=== PATIENT | female | born 1945 | race Caucasian/White ===

== ENCOUNTER 2017-08-17 18:57 | Inpatient (IN) | payer OTHER ==
[2017-08-17 21:48] LABS: ADD MAN DIFF? NO
[2017-08-17] MEDS: SOD CHLORIDE 0.9% 500 ML IV (21:49)
[2017-08-17 21:52] LABS: WHITE BLOOD COUNT 10.1 10^3/ul (4.8-10.8)
[2017-08-17 21:52] LABS: BASOPHILS % 0.4 % (0.0-2.0); HEMATOCRIT 33.9 % (37.0-47.0); HEMOGLOBIN 11.4 g/dl (12.0-16.0); LYMPHOCYTES # 0.7 10^3/ul (0.8-2.9); LYMPHOCYTES % 7.3 % (15.0-51.0); MEAN CORPUSCULAR HEMOGLOBIN 28.6 pg (29.0-33.0); MEAN CORPUSCULAR HGB CONC 33.6 g/dl (32.0-37.0); MEAN CORPUSCULAR VOLUME 85.2 fl (82.0-101.0); MEAN PLATELET VOLUME 12.1 fl (7.4-10.4); MONOCYTE # 0.9 10^3/ul (0.3-0.9); MONOCYTES % 8.5 % (0.0-11.0); NEUTROPHIL # 8.4 10^3/ul (1.6-7.5); NEUTROPHILS % 83.3 % (39.0-77.0); PLATELET COUNT 238 10^3/UL (140-415); RED BLOOD COUNT 3.98 10^6/ul (4.20-5.40); RED CELL DISTRIBUTION WIDTH 12.4 % (11.5-14.5)
[2017-08-17] MEDS: SOD CHLORIDE 0.9% 1,000 ML IV (21:53)
[2017-08-17] MEDS: KETOROLAC 30 MG INJ IV (21:54)
[2017-08-17 22:17] LABS: ANION GAP 15 (8-16); BLOOD UREA NITROGEN 26 mg/dl (7-20); CALCIUM 9.6 mg/dl (8.4-10.2); CARBON DIOXIDE 23 mmol/L (21-31); CHLORIDE 107 mmol/L (97-110); CREATININE 1.69 mg/dl (0.44-1.00); GLUCOSE 232 mg/dl (70-220); POTASSIUM 4.6 mmol/L (3.5-5.1); SODIUM 140 mmol/L (135-144)
[2017-08-17 22:27] LABS: TROPONIN-I 0.039 ng/ml (0.00-0.12)
[2017-08-17] MEDS: morphine 4 MG/ML VIAL IV (22:48)
[2017-08-17] MEDS: ONDANSETRON 4 MG INJ IV (22:48)
[2017-08-17] MEDS: NITROGLYCERIN (SL) 0.4 MG TAB SL (23:25)
[2017-08-17] MEDS: IODIXANOL LOCM 100 ML BTL (23:25)
[2017-08-17] MEDS: SOD CHLORIDE 0.9% 100 ML (23:25)
[2017-08-18] MEDS: CEFTRIAXONE 1 GM/50 ML (PMX) 50 ML IVPB (00:20)
[2017-08-18] MEDS: METOCLOPRAMIDE 10 MG INJ IV (00:39)
[2017-08-18] MEDS: AZITHROMYCIN 500MG/NS (PMX) 250 ML IV (00:40)
[2017-08-18] MEDS ORDERED: ONDANSETRON 4 MG INJ IV (01:00)
[2017-08-18] MEDS ORDERED: BISACODYL (EC) 5 MG TAB PO (01:30)
[2017-08-18] MEDS ORDERED: HYDROCODONE/APAP (5/325) TAB PO (01:30)
[2017-08-18] MEDS ORDERED: DOCUSATE SODIUM 100 MG CAP PO (01:30)
[2017-08-18] MEDS ORDERED: NACL 0.9% 3 ML SYG IV (01:30)
[2017-08-18] MEDS ORDERED: INSULIN GLARGINE [LANtus] 3 ML PEN SC (01:30)
[2017-08-18] MEDS ORDERED: GLUCOSE GEL 15 GRAM TUBE PO (02:00)
[2017-08-18] MEDS ORDERED: GLUCAGON 1 MG INJ IM (02:00)
[2017-08-18] MEDS ORDERED: DEXTROSE 50% 50 ML SYRINGE IV ×2 (02:00)
[2017-08-18 02:45] LABS: CREATINE KINASE 112 IU/L (23-200)
[2017-08-18 02:48] LABS: LACTIC ACID 0.8 mmol/L (0.5-2.0)
[2017-08-18 02:58] LABS: CK-MB 1.12 ng/ml (0.0-2.4); TROPONIN-I 0.056 ng/ml (0.00-0.12)
[2017-08-18] MEDS: IPRATROPIUM (NEB) 0.5 MG/2.5 ML AMP NEB ×5 (04:11→20:10)
[2017-08-18] MEDS: ALBUTEROL 0.083% (NEB) 2.5 MG/3 ML AMP NEB ×5 (04:11→20:09)
[2017-08-18 04:37] LABS: B-TYPE NATRIURETIC PEPTIDE 2210 PG/ML (0-125)
[2017-08-18 07:01] LABS: LACTIC ACID 1.3 mmol/L (0.5-2.0)
[2017-08-18 07:02] LABS: CREATINE KINASE 149 IU/L (23-200)
[2017-08-18 07:14] LABS: CK INDEX 2.9
[2017-08-18 07:18] LABS: TROPONIN-I 0.397 ng/ml (0.00-0.12)
[2017-08-18 07:57] LABS: ADD UMIC YES; UR ASCORBIC ACID NEGATIVE (NEGATIVE); UR BACTERIA FEW /HPF (NONE SEEN); UR BILIRUBIN (Dip) NEGATIVE (NEGATIVE); UR BLOOD (Dip) 1+ mg/dL (NEGATIVE); UR CLARITY CLEAR (CLEAR); UR COLOR YELLOW (YELLOW); UR GLUCOSE (Dip) 2+ mg/dL (NEGATIVE); UR KETONES (Dip) TRACE mg/dL (NEGATIVE); UR LEUKOCYTE ESTERASE (Dip) NEGATIVE Leu/ul (NEGATIVE); UR NITRITE (Dip) NEGATIVE (NEGATIVE); UR RBC 5 /HPF (0-5); UR SPECIFIC GRAVITY (Dip) 1.041 (1.003-1.030); UR TOTAL PROTEIN (Dip) 3+ mg/dl (NEGATIVE); UR UROBILINOGEN (Dip) NEGATIVE (NEGATIVE); UR WBC 1 /HPF (0-5)
[2017-08-18 08:07] LABS: LACTIC ACID 1.6 mmol/L (0.5-2.0)
[2017-08-18] MEDS: ASPIRIN (EC) 81 MG TAB PO (09:26)
[2017-08-18] MEDS: BENAZEPRIL 20 MG TAB PO ×2 (09:26→20:30)
[2017-08-18] MEDS: FAMOTIDINE 20 MG TAB PO (09:26)
[2017-08-18] MEDS: CLOPIDOGREL 75 MG TAB PO (09:26)
[2017-08-18] MEDS: OSELTAMIVIR 75 MG CAP PO (10:57)
[2017-08-18] MEDS: ACETAMINOPHEN 325 MG TAB PO (13:20)
[2017-08-18] MEDS ORDERED: METOPROLOL 5 MG INJ IV (14:00)
[2017-08-18] MEDS ORDERED: BUMETANIDE 1 MG INJ IV (18:00)
[2017-08-18] MEDS: ATORVASTATIN 40 MG TAB PO (20:30)
[2017-08-18] MEDS: INSULIN ASPART [NOVOLOG] 3 ML PEN SC (20:36)
[2017-08-18] MEDS: INSULIN GLARGINE [LANtus] 3 ML PEN SC (20:37)
[2017-08-18] MEDS: SOD CHLORIDE 0.9% 1,000 ML IV (21:00)
[2017-08-18] MEDS: ACETYLCYSTEINE 600 MG CAP PO (22:47)
[2017-08-18] MEDS: OSELTAMIVIR 30 MG CAP PO (23:17)
[2017-08-18 23:33] LABS: Allen Test ACCEPTAB; Arterial Base Excess -1.7 mmol/L (-3.0-3); Arterial Blood Gas Oxygen Sat 97.1 mmHG (95.0-100.0); Arterial COHb 0.3 % (0.0-3.0); Arterial Fraction of Oxyhgb 96.6 % (93.0-99.0); Arterial HCO3 22.3 mmol/L (22.0-26.0); Arterial MetHb 0.2 % (0.0-1.5); Arterial Total Hemglobin 12.4 g/dl (12.0-18.0); Arterial pCO2 35.6 mmhg (35-45); Blood Gas IEPAP 18/5; Blood Gas PS 13; MODE MASK - BIPAP; Site Right Radial
[2017-08-18] MEDS: NITROGLYCERIN 0.3 MG/HR PATCH TRANSDERM (23:40)
[2017-08-18] MEDS: ENOXAPARIN 100 MG/ML SYG SC (23:43)
[2017-08-19] MEDS: LEVALBUTEROL (NEB) 0.63 MG/3 ML AMP HHN ×6 (00:35→20:59)
[2017-08-19] MEDS: IPRATROPIUM (NEB) 0.5 MG/2.5 ML AMP NEB ×6 (00:35→20:59)
[2017-08-19] MEDS: METOCLOPRAMIDE 10 MG INJ IV ×4 (01:19→17:53)
[2017-08-19] MEDS: METOPROLOL 5 MG INJ IV ×4 (01:20→17:53)
[2017-08-19] MEDS: INSULIN ASPART [NOVOLOG] 3 ML PEN SC ×6 (01:23→21:53)
[2017-08-19] MEDS: ACCU-CHEK XX (02:00)
[2017-08-19] MEDS: LIDOCAINE 2% VISC 15 ML CUP PO (03:49)
[2017-08-19] MEDS: AZITHROMYCIN 500MG/NS (PMX) 250 ML IV (03:50)
[2017-08-19] MEDS: CEFTRIAXONE 1 GM/50 ML (PMX) 50 ML IVPB (03:50)
[2017-08-19 07:42] LABS: WHITE BLOOD COUNT 8.1 10^3/ul (4.8-10.8)
[2017-08-19 07:42] LABS: HEMATOCRIT 32.4 % (37.0-47.0); HEMOGLOBIN 10.6 g/dl (12.0-16.0); MEAN CORPUSCULAR HEMOGLOBIN 28.6 pg (29.0-33.0); MEAN CORPUSCULAR HGB CONC 32.7 g/dl (32.0-37.0); MEAN CORPUSCULAR VOLUME 87.6 fl (82.0-101.0); MEAN PLATELET VOLUME 12.1 fl (7.4-10.4); PLATELET COUNT 199 10^3/UL (140-415); RED CELL DISTRIBUTION WIDTH 12.8 % (11.5-14.5)
[2017-08-19 07:53] LABS: ADD MAN DIFF? YES; POSITIVE DIFF @See below
[2017-08-19 08:02] LABS: CREATINE KINASE 272 IU/L (23-200)
[2017-08-19 08:05] LABS: ALANINE AMINOTRANSFERASE 34 IU/L (13-69); ALBUMIN/GLOBULIN RATIO 1.07; ALKALINE PHOSPHATASE 89 IU/L (42-121); ANION GAP 15 (8-16); ASPARTATE AMINO TRANSFERASE 31 IU/L (15-46); BLOOD UREA NITROGEN 29 mg/dl (7-20); CALCIUM 8.1 mg/dl (8.4-10.2); CARBON DIOXIDE 22 mmol/L (21-31); CHLORIDE 109 mmol/L (97-110); CREATININE 1.77 mg/dl (0.44-1.00); GLUCOSE 156 mg/dl (70-220); MAGNESIUM 2.2 mg/dl (1.7-2.5); POTASSIUM 4.5 mmol/L (3.5-5.1); SODIUM 141 mmol/L (135-144); TOTAL PROTEIN 5.8 g/dl (6.1-8.1)
[2017-08-19 08:11] LABS: CHOLESTEROL 182 mg/dl (100-200)
[2017-08-19 08:11] LABS: CHOL/HDL RATIO 4.3 RATIO; HDL CHOLESTEROL 42 mg/dl (33-92); LDL CHOLESTEROL,CALCULATED 119 mg/dl; TRIGLYCERIDES 107 mg/dl (0-149)
[2017-08-19 08:14] LABS: B-TYPE NATRIURETIC PEPTIDE 12100 PG/ML (0-125)
[2017-08-19 08:15] LABS: CK-MB 2.74 ng/ml (0.0-2.4)
[2017-08-19 08:58] LABS: FREE THYROXINE INDEX (Calc) 2.18 ug/ml (0.65-3.89); T3 UPTAKE 40.4 % (23.5-40.5); T4 (THYROXINE) 5.4 ug/dl (5.5-11.0)
[2017-08-19 08:58] LABS: FREE T4 (FREE THYROXINE) 0.95 ng/dl (0.78-2.44)
[2017-08-19] MEDS: CLOPIDOGREL 75 MG TAB PO (08:58)
[2017-08-19] MEDS: OSELTAMIVIR 30 MG CAP PO (08:58)
[2017-08-19] MEDS: FAMOTIDINE 20 MG TAB PO (08:58)
[2017-08-19] MEDS: ACETYLCYSTEINE 600 MG CAP PO ×2 (08:58→21:00)
[2017-08-19] MEDS: ASPIRIN (EC) 81 MG TAB PO (08:58)
[2017-08-19] MEDS: NITROGLYCERIN 0.3 MG/HR PATCH TRANSDERM (09:08)
[2017-08-19] MEDS: SOD CHLORIDE 0.9% 1,000 ML IV (09:08)
[2017-08-19] MEDS: INSULIN GLARGINE [LANtus] 3 ML PEN SC ×2 (09:15→21:53)
[2017-08-19 10:27] LABS: ANISOCYTOSIS 2+ (0-0); BAND NEUTROPHILS #M 0.6 10^3/ul (0.0-0.6); BAND NEUTROPHILS % (M) 8 % (0-4); LYMPHOCYTES #M 0.7 10^3/ul (0.8-2.9); LYMPHOCYTES % (M) 9 % (15-51); MICROCYTOSIS 2+ (0-0); MONOCYTE #M 0.4 10^3/ul (0.3-0.9); MONOCYTES % (M) 5 % (0-11); PLATELET ESTIMATE NORMAL; POLYCHROMASIA 2+ (0-0); SEG NEUT #M 6.4 10^3/ul (1.6-7.5); SEGMENTED NEUTROPHILS (M) % 78 % (39-77); SMUDGE%M 11 % (0-0)
[2017-08-19] MEDS: LINEZOLID 600 MG/D5W (PMX) 300 ML IVPB (13:30)
[2017-08-19] MEDS: CEFEPIME 1GM/50 ML (PMX) 50 ML IVPB (14:30)
[2017-08-19] MEDS: ATORVASTATIN 40 MG TAB PO (21:00)
[2017-08-19] MEDS: ENOXAPARIN 100 MG/ML SYG SC (21:53)
[2017-08-20] MEDS ORDERED: METOCLOPRAMIDE 10 MG INJ IV
[2017-08-20] MEDS: IPRATROPIUM (NEB) 0.5 MG/2.5 ML AMP NEB ×6 (00:46→20:45)
[2017-08-20] MEDS: LEVALBUTEROL (NEB) 0.63 MG/3 ML AMP HHN ×6 (00:46→20:45)
[2017-08-20] MEDS: LINEZOLID 600 MG/D5W (PMX) 300 ML IVPB ×3 (01:05→21:05)
[2017-08-20] MEDS: METOPROLOL 5 MG INJ IV ×4 (01:05→17:37)
[2017-08-20] MEDS: INSULIN ASPART [NOVOLOG] 3 ML PEN SC ×6 (01:16→21:00)
[2017-08-20] MEDS: AZITHROMYCIN 500MG/NS (PMX) 250 ML IV ×2 (01:30→05:29)
[2017-08-20] MEDS: SOD CHLORIDE 0.9% 1,000 ML IV ×2 (01:36→15:54)
[2017-08-20] MEDS: ACCU-CHEK XX (02:00)
[2017-08-20] MEDS: ACETYLCYSTEINE 600 MG CAP PO ×2 (08:47→21:03)
[2017-08-20] MEDS: CLOPIDOGREL 75 MG TAB PO (08:48)
[2017-08-20] MEDS: OSELTAMIVIR 30 MG CAP PO (08:48)
[2017-08-20] MEDS: ASPIRIN (EC) 81 MG TAB PO (08:48)
[2017-08-20] MEDS: FAMOTIDINE 20 MG TAB PO (08:48)
[2017-08-20] MEDS: INSULIN GLARGINE [LANtus] 3 ML PEN SC ×2 (08:49→21:19)
[2017-08-20] MEDS: NITROGLYCERIN 0.3 MG/HR PATCH TRANSDERM (08:59)
[2017-08-20 09:10] LABS: ADD MAN DIFF? NO
[2017-08-20 09:35] LABS: PHOSPHORUS 4.2 mg/dl (2.5-4.9)
[2017-08-20 09:35] LABS: MAGNESIUM 2.1 mg/dl (1.7-2.5)
[2017-08-20 09:46] LABS: ALANINE AMINOTRANSFERASE 32 IU/L (13-69); ALBUMIN 3.2 g/dl (3.3-4.9); ALKALINE PHOSPHATASE 89 IU/L (42-121); ANION GAP 14 (8-16); ASPARTATE AMINO TRANSFERASE 39 IU/L (15-46); BILIRUBIN,INDIRECT 0.1 mg/dl (0-1.1); BILIRUBIN,TOTAL 0.1 mg/dl (0.2-1.3); BLOOD UREA NITROGEN 26 mg/dl (7-20); CALCIUM 8.5 mg/dl (8.4-10.2); CARBON DIOXIDE 23 mmol/L (21-31); CHLORIDE 107 mmol/L (97-110); CREATININE 1.67 mg/dl (0.44-1.00); GLUCOSE 141 mg/dl (70-220); POTASSIUM 4.2 mmol/L (3.5-5.1); SODIUM 140 mmol/L (135-144); TOTAL PROTEIN 6.4 g/dl (6.1-8.1)
[2017-08-20 10:07] LABS: BASOPHILS % 0.3 % (0.0-2.0); HEMATOCRIT 32.2 % (37.0-47.0); HEMOGLOBIN 10.5 g/dl (12.0-16.0); LYMPHOCYTES # 1.2 10^3/ul (0.8-2.9); LYMPHOCYTES % 13.7 % (15.0-51.0); MEAN CORPUSCULAR HEMOGLOBIN 28.7 pg (29.0-33.0); MEAN CORPUSCULAR HGB CONC 32.6 g/dl (32.0-37.0); MEAN PLATELET VOLUME 12.2 fl (7.4-10.4); MONOCYTE # 0.8 10^3/ul (0.3-0.9); MONOCYTES % 8.3 % (0.0-11.0); NEUTROPHILS % 77.4 % (39.0-77.0); PLATELET COUNT 210 10^3/UL (140-415); RED BLOOD COUNT 3.66 10^6/ul (4.20-5.40); RED CELL DISTRIBUTION WIDTH 12.4 % (11.5-14.5)
[2017-08-20 10:55] LABS: HEMOGLOBIN A1C 8.3 % (0-5.9)
[2017-08-20] MEDS: CEFEPIME 1GM/50 ML (PMX) 50 ML IVPB (12:47)
[2017-08-20] MEDS ORDERED: hydrALAzine 20 MG INJ IV (18:00)
[2017-08-20] MEDS: hydrALAzine 20 MG INJ IV ×2 (18:56→22:12)
[2017-08-20] MEDS: ATORVASTATIN 40 MG TAB PO (21:02)
[2017-08-20] MEDS: ENOXAPARIN 100 MG/ML SYG SC (21:20)
[2017-08-20] MEDS: DEXTROSE 5%-0.45% NACL 1,000 ML IV (23:28)
[2017-08-21] MEDS: METOPROLOL 5 MG INJ IV ×4 (00:06→17:30)
[2017-08-21] MEDS: AZITHROMYCIN 500MG/NS (PMX) 250 ML IV (00:43)
[2017-08-21] MEDS: INSULIN ASPART [NOVOLOG] 3 ML PEN SC ×6 (00:44→20:45)
[2017-08-21] MEDS: IPRATROPIUM (NEB) 0.5 MG/2.5 ML AMP NEB ×6 (01:11→20:28)
[2017-08-21] MEDS: LEVALBUTEROL (NEB) 0.63 MG/3 ML AMP HHN ×6 (01:11→20:28)
[2017-08-21] MEDS: ACCU-CHEK XX (01:51)
[2017-08-21] MEDS: LORAZEPAM 2 MG INJ IV (04:43)
[2017-08-21 05:59] LABS: ADD MAN DIFF? NO
[2017-08-21 06:06] LABS: WHITE BLOOD COUNT 7.5 10^3/ul (4.8-10.8)
[2017-08-21 06:06] LABS: BASOPHILS % 0.1 % (0.0-2.0); HEMATOCRIT 29.4 % (37.0-47.0); HEMOGLOBIN 9.6 g/dl (12.0-16.0); LYMPHOCYTES # 1.2 10^3/ul (0.8-2.9); LYMPHOCYTES % 16.2 % (15.0-51.0); MEAN CORPUSCULAR HEMOGLOBIN 28.5 pg (29.0-33.0); MEAN CORPUSCULAR HGB CONC 32.7 g/dl (32.0-37.0); MEAN CORPUSCULAR VOLUME 87.2 fl (82.0-101.0); MEAN PLATELET VOLUME 12.6 fl (7.4-10.4); MONOCYTE # 0.7 10^3/ul (0.3-0.9); MONOCYTES % 9.5 % (0.0-11.0); NEUTROPHIL # 5.5 10^3/ul (1.6-7.5); NEUTROPHILS % 73.8 % (39.0-77.0); PLATELET COUNT 182 10^3/UL (140-415); RED BLOOD COUNT 3.37 10^6/ul (4.20-5.40); RED CELL DISTRIBUTION WIDTH 12.4 % (11.5-14.5)
[2017-08-21 06:20] LABS: CREATINE KINASE 299 IU/L (23-200)
[2017-08-21 06:22] LABS: MAGNESIUM 2.2 mg/dl (1.7-2.5)
[2017-08-21 06:22] LABS: PHOSPHORUS 4.4 mg/dl (2.5-4.9)
[2017-08-21 06:29] LABS: ALANINE AMINOTRANSFERASE 35 IU/L (13-69); ALBUMIN 2.6 g/dl (3.3-4.9); ALBUMIN/GLOBULIN RATIO 0.96; ALKALINE PHOSPHATASE 92 IU/L (42-121); ASPARTATE AMINO TRANSFERASE 33 IU/L (15-46); BILIRUBIN,INDIRECT 0.1 mg/dl (0-1.1); BILIRUBIN,TOTAL 0.1 mg/dl (0.2-1.3); BLOOD UREA NITROGEN 26 mg/dl (7-20); CALCIUM 8.1 mg/dl (8.4-10.2); CARBON DIOXIDE 21 mmol/L (21-31); CHLORIDE 110 mmol/L (97-110); CREATININE 1.69 mg/dl (0.44-1.00); GLUCOSE 133 mg/dl (70-220); SODIUM 140 mmol/L (135-144); TOTAL PROTEIN 5.3 g/dl (6.1-8.1)
[2017-08-21 06:31] LABS: CK INDEX 0.3
[2017-08-21 07:37] LABS: ANION GAP 13 (8-16)
[2017-08-21] MEDS: LINEZOLID 600 MG/D5W (PMX) 300 ML IVPB ×2 (08:53→20:52)
[2017-08-21] MEDS: ACETYLCYSTEINE 600 MG CAP PO ×2 (08:54→20:35)
[2017-08-21] MEDS: FAMOTIDINE 20 MG TAB PO (08:54)
[2017-08-21] MEDS: OSELTAMIVIR 30 MG CAP PO (08:55)
[2017-08-21] MEDS: CLOPIDOGREL 75 MG TAB PO (08:55)
[2017-08-21] MEDS: ASPIRIN (EC) 81 MG TAB PO (08:55)
[2017-08-21] MEDS: NITROGLYCERIN 0.3 MG/HR PATCH TRANSDERM (08:55)
[2017-08-21] MEDS: INSULIN GLARGINE [LANtus] 3 ML PEN SC ×2 (08:57→20:44)
[2017-08-21] MEDS: SALMETEROL/FLUTICASONE 500/50 INHA INH ×2 (10:51→20:35)
[2017-08-21] MEDS: CEFEPIME 1GM/50 ML (PMX) 50 ML IVPB (12:28)
[2017-08-21] MEDS: DEXTROSE 5%-0.45% NACL 1,000 ML IV ×2 (13:48→20:52)
[2017-08-21] MEDS: ATORVASTATIN 40 MG TAB PO (20:35)
[2017-08-21] MEDS: ENOXAPARIN 100 MG/ML SYG SC (20:36)
[2017-08-22] MEDS: LEVALBUTEROL (NEB) 0.63 MG/3 ML AMP HHN ×6 (01:01→21:36)
[2017-08-22] MEDS: IPRATROPIUM (NEB) 0.5 MG/2.5 ML AMP NEB ×6 (01:01→21:36)
[2017-08-22] MEDS: AZITHROMYCIN 500MG/NS (PMX) 250 ML IV (01:11)
[2017-08-22] MEDS: METOPROLOL 5 MG INJ IV ×4 (01:12→18:01)
[2017-08-22] MEDS: INSULIN ASPART [NOVOLOG] 3 ML PEN SC ×6 (01:17→20:34)
[2017-08-22] MEDS: ACCU-CHEK XX (01:28)
[2017-08-22] MEDS: hydrALAzine 20 MG INJ IV ×2 (03:49→16:07)
[2017-08-22 08:38] LABS: ADD MAN DIFF? NO
[2017-08-22] MEDS: NITROGLYCERIN 0.3 MG/HR PATCH TRANSDERM (08:41)
[2017-08-22] MEDS: OSELTAMIVIR 30 MG CAP PO (08:43)
[2017-08-22] MEDS: ACETYLCYSTEINE 600 MG CAP PO ×2 (08:43→20:28)
[2017-08-22] MEDS: ASPIRIN (EC) 81 MG TAB PO (08:43)
[2017-08-22] MEDS: CLOPIDOGREL 75 MG TAB PO (08:43)
[2017-08-22] MEDS: FAMOTIDINE 20 MG TAB PO (08:43)
[2017-08-22] MEDS: SALMETEROL/FLUTICASONE 500/50 INHA INH ×2 (08:44→20:26)
[2017-08-22] MEDS: morphine 2 MG INJ IV ×2 (08:51→18:00)
[2017-08-22 08:52] LABS: WHITE BLOOD COUNT 7.7 10^3/ul (4.8-10.8)
[2017-08-22 08:52] LABS: BASOPHILS % 0.3 % (0.0-2.0); HEMATOCRIT 28.8 % (37.0-47.0); HEMOGLOBIN 9.5 g/dl (12.0-16.0); LYMPHOCYTES # 1.1 10^3/ul (0.8-2.9); LYMPHOCYTES % 14.5 % (15.0-51.0); MEAN CORPUSCULAR HEMOGLOBIN 28.6 pg (29.0-33.0); MEAN CORPUSCULAR VOLUME 86.7 fl (82.0-101.0); MEAN PLATELET VOLUME 12.3 fl (7.4-10.4); MONOCYTE # 0.7 10^3/ul (0.3-0.9); MONOCYTES % 9.3 % (0.0-11.0); NEUTROPHIL # 5.8 10^3/ul (1.6-7.5); NEUTROPHILS % 75.4 % (39.0-77.0); PLATELET COUNT 185 10^3/UL (140-415); RED BLOOD COUNT 3.32 10^6/ul (4.20-5.40); RED CELL DISTRIBUTION WIDTH 12.7 % (11.5-14.5)
[2017-08-22 09:16] LABS: ALANINE AMINOTRANSFERASE 45 IU/L (13-69); ALBUMIN 3.1 g/dl (3.3-4.9); ALBUMIN/GLOBULIN RATIO 1.06; ALKALINE PHOSPHATASE 172 IU/L (42-121); ANION GAP 12 (8-16); ASPARTATE AMINO TRANSFERASE 41 IU/L (15-46); BILIRUBIN,INDIRECT 0.1 mg/dl (0-1.1); BILIRUBIN,TOTAL 0.1 mg/dl (0.2-1.3); BLOOD UREA NITROGEN 27 mg/dl (7-20); CALCIUM 8.1 mg/dl (8.4-10.2); CARBON DIOXIDE 21 mmol/L (21-31); CHLORIDE 110 mmol/L (97-110); CREATININE 1.68 mg/dl (0.44-1.00); GLUCOSE 112 mg/dl (70-220); POTASSIUM 3.7 mmol/L (3.5-5.1); SODIUM 139 mmol/L (135-144)
[2017-08-22 09:28] LABS: PHOSPHORUS 4.1 mg/dl (2.5-4.9)
[2017-08-22 09:28] LABS: MAGNESIUM 2.3 mg/dl (1.7-2.5)
[2017-08-22] MEDS: INSULIN GLARGINE [LANtus] 3 ML PEN SC ×2 (09:44→20:31)
[2017-08-22] MEDS: LINEZOLID 600 MG/D5W (PMX) 300 ML IVPB ×2 (09:44→20:27)
[2017-08-22] MEDS: CEFEPIME 1GM/50 ML (PMX) 50 ML IVPB (13:43)
[2017-08-22] MEDS: DEXTROSE 5%-0.45% NACL 1,000 ML IV (13:44)
[2017-08-22 18:41] LABS: PROCALCITONIN 0.14 ng/mL (<0.10); PROCALCITONIN 1.16 ng/mL (<0.10)
[2017-08-22] MEDS: ENOXAPARIN 100 MG/ML SYG SC (20:26)
[2017-08-22] MEDS: ATORVASTATIN 40 MG TAB PO (20:28)
[2017-08-22] MEDS: LORAZEPAM 2 MG INJ IV (22:10)
[2017-08-22] MEDS: ONDANSETRON 4 MG INJ IV (22:10)
[2017-08-23] MEDS: METOPROLOL 5 MG INJ IV ×3 (00:47→11:41)
[2017-08-23] MEDS: AZITHROMYCIN 500MG/NS (PMX) 250 ML IV (01:30)
[2017-08-23] MEDS: ACCU-CHEK XX (02:00)
[2017-08-23] MEDS: IPRATROPIUM (NEB) 0.5 MG/2.5 ML AMP NEB ×6 (02:06→21:07)
[2017-08-23] MEDS: LEVALBUTEROL (NEB) 0.63 MG/3 ML AMP HHN ×6 (02:06→21:07)
[2017-08-23 07:41] LABS: ADD MAN DIFF? NO
[2017-08-23 07:46] LABS: WHITE BLOOD COUNT 5.9 10^3/ul (4.8-10.8)
[2017-08-23 07:46] LABS: BASOPHILS % 0.2 % (0.0-2.0); HEMATOCRIT 28.1 % (37.0-47.0); HEMOGLOBIN 9.2 g/dl (12.0-16.0); LYMPHOCYTES # 1.5 10^3/ul (0.8-2.9); LYMPHOCYTES % 24.9 % (15.0-51.0); MEAN CORPUSCULAR HEMOGLOBIN 28.2 pg (29.0-33.0); MEAN CORPUSCULAR HGB CONC 32.7 g/dl (32.0-37.0); MEAN CORPUSCULAR VOLUME 86.2 fl (82.0-101.0); MEAN PLATELET VOLUME 12.2 fl (7.4-10.4); MONOCYTE # 0.6 10^3/ul (0.3-0.9); MONOCYTES % 9.7 % (0.0-11.0); NEUTROPHIL # 3.8 10^3/ul (1.6-7.5); NEUTROPHILS % 64.7 % (39.0-77.0); PLATELET COUNT 190 10^3/UL (140-415); RED BLOOD COUNT 3.26 10^6/ul (4.20-5.40); RED CELL DISTRIBUTION WIDTH 12.6 % (11.5-14.5)
[2017-08-23] MEDS: INSULIN ASPART [NOVOLOG] 3 ML PEN SC ×4 (08:00→21:00)
[2017-08-23 08:07] LABS: CREATINE KINASE 215 IU/L (23-200)
[2017-08-23 08:19] LABS: CK INDEX 0.7; CK-MB 1.53 ng/ml (0.0-2.4)
[2017-08-23 08:20] LABS: TROPONIN-I 0.316 ng/ml (0.00-0.12)
[2017-08-23 08:24] LABS: ALANINE AMINOTRANSFERASE 42 IU/L (13-69); ALBUMIN 2.6 g/dl (3.3-4.9); ALBUMIN/GLOBULIN RATIO 0.96; ALKALINE PHOSPHATASE 141 IU/L (42-121); ANION GAP 13 (8-16); ASPARTATE AMINO TRANSFERASE 29 IU/L (15-46); BILIRUBIN,INDIRECT 0.1 mg/dl (0-1.1); BILIRUBIN,TOTAL 0.1 mg/dl (0.2-1.3); BLOOD UREA NITROGEN 26 mg/dl (7-20); CALCIUM 8.1 mg/dl (8.4-10.2); CARBON DIOXIDE 19 mmol/L (21-31); CHLORIDE 110 mmol/L (97-110); GLUCOSE 99 mg/dl (70-220); MAGNESIUM 2.3 mg/dl (1.7-2.5); SODIUM 138 mmol/L (135-144); TOTAL PROTEIN 5.3 g/dl (6.1-8.1)
[2017-08-23 08:31] LABS: B-TYPE NATRIURETIC PEPTIDE 5590 PG/ML (0-125)
[2017-08-23] MEDS: FAMOTIDINE 20 MG TAB PO (09:00)
[2017-08-23] MEDS: NITROGLYCERIN 0.3 MG/HR PATCH TRANSDERM (09:00)
[2017-08-23] MEDS: OSELTAMIVIR 30 MG CAP PO (09:00)
[2017-08-23] MEDS: INSULIN GLARGINE [LANtus] 3 ML PEN SC ×2 (09:00→21:05)
[2017-08-23] MEDS: SALMETEROL/FLUTICASONE 500/50 INHA INH ×2 (09:20→21:12)
[2017-08-23] MEDS: LINEZOLID 600 MG/D5W (PMX) 300 ML IVPB (09:20)
[2017-08-23] MEDS: CLOPIDOGREL 75 MG TAB PO (09:21)
[2017-08-23] MEDS: ACETYLCYSTEINE 600 MG CAP PO ×2 (09:21→21:08)
[2017-08-23] MEDS: ASPIRIN (EC) 81 MG TAB PO (09:21)
[2017-08-23] MEDS: DEXTROSE 5%-0.45% NACL 1,000 ML IV (09:22)
[2017-08-23] MEDS: CEFEPIME 1GM/50 ML (PMX) 50 ML IVPB (12:42)
[2017-08-23] MEDS: BUMETANIDE 1 MG INJ IV (12:42)
[2017-08-23] MEDS ORDERED: FENTAnyl 50 MCG/ML VIAL (14:44)
[2017-08-23] MEDS ORDERED: NITROGLYCERIN (IC) 100 MCG/ML INJ (15:00)
[2017-08-23] MEDS ORDERED: BIVALIRUDIN 250MG /NS 50 ML 50 ML IVPB (15:08)
[2017-08-23] MEDS ORDERED: IODIXANOL LOCM 100 ML BTL (15:08)
[2017-08-23] MEDS ORDERED: CLOPIDOGREL 300 MG TAB (15:08)
[2017-08-23] MEDS ORDERED: LIDOCAINE 1% (MDV) 20 ML INJ (15:08)
[2017-08-23] MEDS ORDERED: IOHEXOL 350MG/ML 50 ML BTL (15:08)
[2017-08-23] MEDS ORDERED: METOPROLOL 5 MG INJ (15:44)
[2017-08-23] MEDS: hydrALAzine 20 MG INJ IV ×2 (15:53→22:09)
[2017-08-23] MEDS: GLUCOSE GEL 15 GRAM TUBE PO ×3 (18:04→18:54)
[2017-08-23] MEDS: GLUCOSE GEL 15 GRAM TUBE BUCCAL (18:51)
[2017-08-23] MEDS: ATORVASTATIN 40 MG TAB PO (21:12)
[2017-08-23] MEDS: SOD CHLORIDE 0.9% 1,000 ML IV (22:14)
[2017-08-24] MEDS: LEVALBUTEROL (NEB) 0.63 MG/3 ML AMP HHN ×6 (01:03→20:47)
[2017-08-24] MEDS: IPRATROPIUM (NEB) 0.5 MG/2.5 ML AMP NEB ×6 (01:04→20:47)
[2017-08-24] MEDS: AZITHROMYCIN 500MG/NS (PMX) 250 ML IV (01:17)
[2017-08-24] MEDS: LORAZEPAM 2 MG INJ IV (01:20)
[2017-08-24] MEDS: ACCU-CHEK XX (02:00)
[2017-08-24 05:02] LABS: ADD MAN DIFF? NO
[2017-08-24 05:08] LABS: WHITE BLOOD COUNT 4.6 10^3/ul (4.8-10.8)
[2017-08-24 05:08] LABS: BASOPHILS % 0.4 % (0.0-2.0); HEMATOCRIT 25.8 % (37.0-47.0); HEMOGLOBIN 8.6 g/dl (12.0-16.0); LYMPHOCYTES # 1.2 10^3/ul (0.8-2.9); LYMPHOCYTES % 25.8 % (15.0-51.0); MEAN CORPUSCULAR HEMOGLOBIN 28.3 pg (29.0-33.0); MEAN CORPUSCULAR HGB CONC 33.3 g/dl (32.0-37.0); MEAN CORPUSCULAR VOLUME 84.9 fl (82.0-101.0); MEAN PLATELET VOLUME 12.2 fl (7.4-10.4); MONOCYTE # 0.4 10^3/ul (0.3-0.9); MONOCYTES % 9.2 % (0.0-11.0); NEUTROPHIL # 2.9 10^3/ul (1.6-7.5); NEUTROPHILS % 64.2 % (39.0-77.0); PLATELET COUNT 215 10^3/UL (140-415); RED BLOOD COUNT 3.04 10^6/ul (4.20-5.40); RED CELL DISTRIBUTION WIDTH 12.7 % (11.5-14.5)
[2017-08-24 05:29] LABS: ALANINE AMINOTRANSFERASE 39 IU/L (13-69); ALBUMIN 2.6 g/dl (3.3-4.9); ALBUMIN/GLOBULIN RATIO 0.92; ALKALINE PHOSPHATASE 130 IU/L (42-121); ANION GAP 10 (8-16); ASPARTATE AMINO TRANSFERASE 24 IU/L (15-46); BILIRUBIN,INDIRECT 0.1 mg/dl (0-1.1); BILIRUBIN,TOTAL 0.1 mg/dl (0.2-1.3); BLOOD UREA NITROGEN 22 mg/dl (7-20); CALCIUM 7.8 mg/dl (8.4-10.2); CARBON DIOXIDE 21 mmol/L (21-31); CHLORIDE 111 mmol/L (97-110); CREATININE 1.44 mg/dl (0.44-1.00); GLUCOSE 68 mg/dl (70-220); POTASSIUM 3.5 mmol/L (3.5-5.1); SODIUM 138 mmol/L (135-144); TOTAL PROTEIN 5.4 g/dl (6.1-8.1)
[2017-08-24 05:46] LABS: MAGNESIUM 2.2 mg/dl (1.7-2.5)
[2017-08-24 05:46] LABS: PHOSPHORUS 4.1 mg/dl (2.5-4.9)
[2017-08-24 05:53] LABS: B-TYPE NATRIURETIC PEPTIDE 6010 PG/ML (0-125)
[2017-08-24] MEDS: hydrALAzine 20 MG INJ IV (05:54)
[2017-08-24] MEDS: INSULIN ASPART [NOVOLOG] 3 ML PEN SC ×4 (08:00→21:00)
[2017-08-24] MEDS: INSULIN GLARGINE [LANtus] 3 ML PEN SC ×2 (08:17→21:14)
[2017-08-24] MEDS: SALMETEROL/FLUTICASONE 500/50 INHA INH ×2 (08:19→21:06)
[2017-08-24] MEDS: ACETYLCYSTEINE 600 MG CAP PO ×2 (08:19→21:06)
[2017-08-24] MEDS: OSELTAMIVIR 30 MG CAP PO (08:19)
[2017-08-24] MEDS: CLOPIDOGREL 75 MG TAB PO (08:20)
[2017-08-24] MEDS: FAMOTIDINE 20 MG TAB PO (08:20)
[2017-08-24] MEDS: ASPIRIN (EC) 81 MG TAB PO (10:12)
[2017-08-24] MEDS: NITROGLYCERIN 0.3 MG/HR PATCH TRANSDERM (10:13)
[2017-08-24] MEDS: ENOXAPARIN 40 MG/0.4 ML SYG SC (10:36)
[2017-08-24] MEDS: CEFEPIME 1GM/50 ML (PMX) 50 ML IVPB (13:31)
[2017-08-24] MEDS: ATORVASTATIN 40 MG TAB PO (21:06)
[2017-08-24] MEDS ORDERED: VITAMIN A & D 5 GM OINT PACKET TOP (23:35)
[2017-08-25] MEDS: LEVALBUTEROL (NEB) 0.63 MG/3 ML AMP HHN ×6 (00:47→21:30)
[2017-08-25] MEDS: IPRATROPIUM (NEB) 0.5 MG/2.5 ML AMP NEB ×6 (00:47→21:30)
[2017-08-25] MEDS: AZITHROMYCIN 500MG/NS (PMX) 250 ML IV (01:50)
[2017-08-25] MEDS: ACCU-CHEK XX (02:00)
[2017-08-25] MEDS: hydrALAzine 20 MG INJ IV ×2 (06:32→20:24)
[2017-08-25] MEDS: ACETAMINOPHEN 325 MG TAB PO (06:39)
[2017-08-25] MEDS: INSULIN ASPART [NOVOLOG] 3 ML PEN SC ×4 (08:00→20:34)
[2017-08-25] MEDS: NITROGLYCERIN 0.3 MG/HR PATCH TRANSDERM (10:26)
[2017-08-25] MEDS: FAMOTIDINE 20 MG TAB PO (10:27)
[2017-08-25] MEDS: CLOPIDOGREL 75 MG TAB PO (10:27)
[2017-08-25] MEDS: OSELTAMIVIR 30 MG CAP PO (10:28)
[2017-08-25] MEDS: ENOXAPARIN 40 MG/0.4 ML SYG SC (10:28)
[2017-08-25] MEDS: ACETYLCYSTEINE 600 MG CAP PO ×2 (10:28→20:24)
[2017-08-25] MEDS: ASPIRIN (EC) 81 MG TAB PO (10:28)
[2017-08-25] MEDS: INSULIN GLARGINE [LANtus] 3 ML PEN SC ×2 (10:29→20:37)
[2017-08-25] MEDS: SALMETEROL/FLUTICASONE 500/50 INHA INH ×2 (10:29→21:47)
[2017-08-25] MEDS: CEFEPIME 1GM/50 ML (PMX) 50 ML IVPB (14:24)
[2017-08-25] MEDS: ATORVASTATIN 40 MG TAB PO (20:23)
[2017-08-25] MEDS: ARTIFICIAL TEARS 15 ML OPH BOTH EYES (20:24)
[2017-08-26] MEDS: IPRATROPIUM (NEB) 0.5 MG/2.5 ML AMP NEB ×6 (00:58→21:51)
[2017-08-26] MEDS: LEVALBUTEROL (NEB) 0.63 MG/3 ML AMP HHN ×6 (00:58→21:51)
[2017-08-26] MEDS: AZITHROMYCIN 500MG/NS (PMX) 250 ML IV (01:48)
[2017-08-26] MEDS: ACCU-CHEK XX (02:00)
[2017-08-26] MEDS: LORAZEPAM 2 MG INJ IV (06:33)
[2017-08-26 07:50] LABS: ADD MAN DIFF? NO
[2017-08-26 07:59] LABS: BASOPHILS % 0.2 % (0.0-2.0); EOSINOPHILS % 0.2 % (0.0-7.0); HEMATOCRIT 23.6 % (37.0-47.0); HEMOGLOBIN 8.1 g/dl (12.0-16.0); LYMPHOCYTES # 1.2 10^3/ul (0.8-2.9); LYMPHOCYTES % 21.6 % (15.0-51.0); MEAN CORPUSCULAR HEMOGLOBIN 28.7 pg (29.0-33.0); MEAN CORPUSCULAR HGB CONC 34.3 g/dl (32.0-37.0); MEAN CORPUSCULAR VOLUME 83.7 fl (82.0-101.0); MEAN PLATELET VOLUME 11.2 fl (7.4-10.4); MONOCYTE # 0.7 10^3/ul (0.3-0.9); MONOCYTES % 12.6 % (0.0-11.0); NEUTROPHIL # 3.7 10^3/ul (1.6-7.5); NEUTROPHILS % 64.7 % (39.0-77.0); PLATELET COUNT 241 10^3/UL (140-415); RED BLOOD COUNT 2.82 10^6/ul (4.20-5.40); RED CELL DISTRIBUTION WIDTH 12.4 % (11.5-14.5)
[2017-08-26 07:59] LABS: WHITE BLOOD COUNT 5.7 10^3/ul (4.8-10.8)
[2017-08-26] MEDS: INSULIN ASPART [NOVOLOG] 3 ML PEN SC ×4 (08:00→21:00)
[2017-08-26 08:25] LABS: ALANINE AMINOTRANSFERASE 37 IU/L (13-69); ALBUMIN 2.5 g/dl (3.3-4.9); ALBUMIN/GLOBULIN RATIO 0.92; ALKALINE PHOSPHATASE 109 IU/L (42-121); ANION GAP 10 (8-16); ASPARTATE AMINO TRANSFERASE 23 IU/L (15-46); BILIRUBIN,INDIRECT 0.2 mg/dl (0-1.1); BILIRUBIN,TOTAL 0.2 mg/dl (0.2-1.3); BLOOD UREA NITROGEN 21 mg/dl (7-20); CARBON DIOXIDE 22 mmol/L (21-31); CHLORIDE 111 mmol/L (97-110); CREATININE 1.25 mg/dl (0.44-1.00); GLUCOSE 114 mg/dl (70-220); POTASSIUM 3.5 mmol/L (3.5-5.1); SODIUM 139 mmol/L (135-144); TOTAL PROTEIN 5.2 g/dl (6.1-8.1)
[2017-08-26] MEDS: FAMOTIDINE 20 MG TAB PO (09:31)
[2017-08-26] MEDS: OSELTAMIVIR 30 MG CAP PO (09:31)
[2017-08-26] MEDS: CLOPIDOGREL 75 MG TAB PO (09:31)
[2017-08-26] MEDS: ASPIRIN (EC) 81 MG TAB PO (09:32)
[2017-08-26] MEDS: NITROGLYCERIN 0.3 MG/HR PATCH TRANSDERM (09:33)
[2017-08-26] MEDS: ENOXAPARIN 40 MG/0.4 ML SYG SC (09:34)
[2017-08-26] MEDS: INSULIN GLARGINE [LANtus] 3 ML PEN SC ×2 (09:35→21:21)
[2017-08-26] MEDS: ACETYLCYSTEINE 600 MG CAP PO ×2 (09:50→21:08)
[2017-08-26] MEDS: SALMETEROL/FLUTICASONE 500/50 INHA INH ×2 (09:51→21:07)
[2017-08-26] MEDS: CEFEPIME 1GM/50 ML (PMX) 50 ML IVPB (13:30)
[2017-08-26] MEDS: BENAZEPRIL 40 MG TAB PO (17:48)
[2017-08-26] MEDS: ATORVASTATIN 40 MG TAB PO (21:08)
[2017-08-26] MEDS: ARTIFICIAL TEARS 15 ML OPH BOTH EYES (21:08)
[2017-08-27] MEDS: LEVALBUTEROL (NEB) 0.63 MG/3 ML AMP HHN ×5 (00:28→17:00)
[2017-08-27] MEDS: IPRATROPIUM (NEB) 0.5 MG/2.5 ML AMP NEB ×5 (00:28→17:00)
[2017-08-27] MEDS: AZITHROMYCIN 500MG/NS (PMX) 250 ML IV (01:58)
[2017-08-27] MEDS: hydrALAzine 20 MG INJ IV (01:58)
[2017-08-27] MEDS: ACCU-CHEK XX (02:00)
[2017-08-27] MEDS: INSULIN ASPART [NOVOLOG] 3 ML PEN SC ×3 (08:00→18:05)
[2017-08-27] MEDS: SALMETEROL/FLUTICASONE 500/50 INHA INH (08:41)
[2017-08-27] MEDS: NITROGLYCERIN 0.3 MG/HR PATCH TRANSDERM (08:42)
[2017-08-27] MEDS: FAMOTIDINE 20 MG TAB PO (08:43)
[2017-08-27] MEDS: CLOPIDOGREL 75 MG TAB PO (08:43)
[2017-08-27] MEDS: ACETYLCYSTEINE 600 MG CAP PO (08:43)
[2017-08-27] MEDS: OSELTAMIVIR 30 MG CAP PO (08:43)
[2017-08-27] MEDS: BENAZEPRIL 40 MG TAB PO (08:44)
[2017-08-27] MEDS: ASPIRIN (EC) 81 MG TAB PO (08:44)
[2017-08-27] MEDS: INSULIN GLARGINE [LANtus] 3 ML PEN SC (08:45)
[2017-08-27] MEDS: ENOXAPARIN 40 MG/0.4 ML SYG SC (08:46)
[2017-08-27 08:48] LABS: ADD MAN DIFF? NO
[2017-08-27] MEDS: ARTIFICIAL TEARS 15 ML OPH BOTH EYES (08:52)
[2017-08-27 09:05] LABS: BASOPHILS % 0.3 % (0.0-2.0); EOSINOPHILS % 0.1 % (0.0-7.0); HEMATOCRIT 24.4 % (37.0-47.0); HEMOGLOBIN 8.2 g/dl (12.0-16.0); LYMPHOCYTES # 1.5 10^3/ul (0.8-2.9); LYMPHOCYTES % 19.4 % (15.0-51.0); MEAN CORPUSCULAR HEMOGLOBIN 28.2 pg (29.0-33.0); MEAN CORPUSCULAR HGB CONC 33.6 g/dl (32.0-37.0); MEAN CORPUSCULAR VOLUME 83.8 fl (82.0-101.0); MEAN PLATELET VOLUME 10.8 fl (7.4-10.4); MONOCYTE # 1.1 10^3/ul (0.3-0.9); NEUTROPHIL # 4.9 10^3/ul (1.6-7.5); NEUTROPHILS % 65.1 % (39.0-77.0); PLATELET COUNT 262 10^3/UL (140-415); RED BLOOD COUNT 2.91 10^6/ul (4.20-5.40); RED CELL DISTRIBUTION WIDTH 12.5 % (11.5-14.5)
[2017-08-27 09:05] LABS: WHITE BLOOD COUNT 7.5 10^3/ul (4.8-10.8)
[2017-08-27 09:11] LABS: MAGNESIUM 2.1 mg/dl (1.7-2.5)
[2017-08-27 09:11] LABS: PHOSPHORUS 3.4 mg/dl (2.5-4.9)
[2017-08-27 09:13] LABS: ANION GAP 10 (8-16); BLOOD UREA NITROGEN 17 mg/dl (7-20); CALCIUM 8.3 mg/dl (8.4-10.2); CARBON DIOXIDE 20 mmol/L (21-31); CHLORIDE 111 mmol/L (97-110); CREATININE 1.26 mg/dl (0.44-1.00); GLUCOSE 123 mg/dl (70-220); POTASSIUM 3.5 mmol/L (3.5-5.1); SODIUM 137 mmol/L (135-144)
[2017-08-27] MEDS ORDERED: BENAZEPRIL 40 MG TAB PO (21:00)
== END 2017-08-27 18:36 | disposition home health service (06) | DRG 246 ==
LOC: MS4 08-18 00:59 → E/R 18:57
PROC: 027034Z Dilation of Coronary Artery, One Artery with Drug-eluting Intraluminal Device, Percutaneous Approach (ICD-10-PCS; principal; 2017-08-23 13:30)
PROC: 4A023N7 Measurement of Cardiac Sampling and Pressure, Left Heart, Percutaneous Approach (ICD-10-PCS; 2017-08-23 13:30)
PROC: B2111ZZ Fluoroscopy of Multiple Coronary Arteries using Low Osmolar Contrast (ICD-10-PCS; 2017-08-23 13:30)
DX: T82.855A Stenosis of coronary artery stent, initial encounter (principal); I21.4 Non-ST elevation (NSTEMI) myocardial infarction; A40.9 Streptococcal sepsis, unspecified; J96.01 Acute respiratory failure with hypoxia; J18.9 Pneumonia, unspecified organism; D69.6 Thrombocytopenia, unspecified; N17.9 Acute kidney failure, unspecified; E11.9 Type 2 diabetes mellitus without complications; E86.0 Dehydration; R65.20 Severe sepsis without septic shock; D64.9 Anemia, unspecified; J10.1 Influenza due to other identified influenza virus with other respiratory manifestations; I25.10 Atherosclerotic heart disease of native coronary artery without angina pectoris; Y95 Nosocomial condition; I10 Essential (primary) hypertension; E78.5 Hyperlipidemia, unspecified; F17.200 Nicotine dependence, unspecified, uncomplicated; Z79.02 Long term (current) use of antithrombotics/antiplatelets; Z95.5 Presence of coronary angioplasty implant and graft
CPT/HCPCS: 36415; 36600; 71045; 71275; 80048; 80053; 80061; 81001; 82550; 82553; 82803; 82962; 83036; 83605; 83735; 83880; 84100; 84145; 84436; 84439; 84443; 84479; 84484; 85025; 87040; 87086; 87400; 92526; 92610; 93005; 93306; 93458; 94640; 94660; 94664; 96374; 96375; 97162; 99291-25

== ENCOUNTER 2018-04-19 15:17 | Inpatient (IN) | payer OTHER ==
[2018-04-19 17:18] LABS: ADD MAN DIFF? NO
[2018-04-19 17:20] LABS: BASOPHILS % 0.2 % (0.0-2.0); EOSINOPHILS % 0.2 % (0.0-7.0); HEMATOCRIT 29.4 % (37.0-47.0); HEMOGLOBIN 9.6 g/dl (12.0-16.0); LYMPHOCYTES # 1.4 10^3/ul (0.8-2.9); LYMPHOCYTES % 22.2 % (15.0-51.0); MEAN CORPUSCULAR HEMOGLOBIN 28.2 pg (29.0-33.0); MEAN CORPUSCULAR HGB CONC 32.7 g/dl (32.0-37.0); MEAN CORPUSCULAR VOLUME 86.5 fl (82.0-101.0); MEAN PLATELET VOLUME 11.6 fl (7.4-10.4); MONOCYTE # 0.6 10^3/ul (0.3-0.9); MONOCYTES % 9.5 % (0.0-11.0); NEUTROPHIL # 4.1 10^3/ul (1.6-7.5); NEUTROPHILS % 67.4 % (39.0-77.0); PLATELET COUNT 170 10^3/UL (140-415); RED CELL DISTRIBUTION WIDTH 13.1 % (11.5-14.5)
[2018-04-19 17:20] LABS: WHITE BLOOD COUNT 6.1 10^3/ul (4.8-10.8)
[2018-04-19] MEDS: ASPIRIN 81 MG TAB PO (17:20)
[2018-04-19] MEDS: FUROSEMIDE 40 MG INJ IV (17:20)
[2018-04-19 17:34] LABS: INR 1.02; PROTIME 13.5 Sec (11.9-14.9); PT RATIO 1.1
[2018-04-19 17:35] LABS: PARTIAL THROMBOPLASTIN TIME 35.3 Sec (23.0-35.0)
[2018-04-19 17:42] LABS: ALANINE AMINOTRANSFERASE 28 IU/L (13-69); ALBUMIN 3.1 g/dl (3.3-4.9); ALBUMIN/GLOBULIN RATIO 1.14; ALKALINE PHOSPHATASE 123 IU/L (42-121); ANION GAP 11 (8-16); ASPARTATE AMINO TRANSFERASE 35 IU/L (15-46); BILIRUBIN,INDIRECT 0.3 mg/dl (0-1.1); BILIRUBIN,TOTAL 0.3 mg/dl (0.2-1.3); BLOOD UREA NITROGEN 27 mg/dl (7-20); CALCIUM 8.6 mg/dl (8.4-10.2); CARBON DIOXIDE 22 mmol/L (21-31); CHLORIDE 112 mmol/L (97-110); CREATININE 2.68 mg/dl (0.44-1.00); GLUCOSE 132 mg/dl (70-220); LIPASE 399 U/L (23-300); POTASSIUM 5.1 mmol/L (3.5-5.1); SODIUM 140 mmol/L (135-144); TOTAL PROTEIN 5.8 g/dl (6.1-8.1)
[2018-04-19 17:53] LABS: B-TYPE NATRIURETIC PEPTIDE 6570 PG/ML (0-125); TROPONIN-I < 0.012 ng/ml (0.000-0.120)
[2018-04-19] MEDS ORDERED: ACETAMINOPHEN 325 MG TAB PO (18:00)
[2018-04-19] MEDS ORDERED: ONDANSETRON 4 MG INJ IV (18:00)
[2018-04-19] MEDS ORDERED: NACL 0.9% 3 ML SYG IV (18:00)
[2018-04-19] MEDS ORDERED: BISACODYL 10 MG SUPP PR (18:00)
[2018-04-19] MEDS ORDERED: DOCUSATE SODIUM 100 MG CAP PO (18:00)
[2018-04-19] MEDS ORDERED: NITROGLYCERIN (SL) 0.4 MG TAB SL (18:00)
[2018-04-19] MEDS ORDERED: MAGNESIUM HYDROXIDE 30ML CUP PO (18:00)
[2018-04-19] MEDS: HYDROCODONE/APAP (5/325) TAB PO (18:15)
[2018-04-19] MEDS: FAMOTIDINE 20 MG TAB PO (19:19)
[2018-04-19] MEDS: hydrALAzine 20 MG INJ IV (21:36)
[2018-04-19] MEDS: HEPARIN 5,000 UNIT/0.5 ML VIAL SC (21:44)
[2018-04-19] MEDS ORDERED: ALBUTEROL/IPRATROPIUM (NEB) 3 ML AMP HHN (23:30)
[2018-04-19] MEDS ORDERED: GLUCOSE GEL 15 GRAM TUBE PO ×2 (23:45)
[2018-04-19] MEDS ORDERED: GLUCAGON 1 MG INJ IM (23:45)
[2018-04-19] MEDS ORDERED: DEXTROSE 50% 50 ML SYRINGE IV ×2 (23:45)
[2018-04-19] MEDS ORDERED: GLUCOSE GEL 15 GRAM TUBE BUCCAL (23:45)
[2018-04-19 23:58] LABS: CREATINE KINASE 96 IU/L (23-200)
[2018-04-20 00:11] LABS: CK INDEX 1.5; TROPONIN-I < 0.012 ng/ml (0.000-0.120)
[2018-04-20] MEDS: ACCU-CHEK XX (02:00)
[2018-04-20] MEDS: FUROSEMIDE 40 MG INJ IV ×2 (06:01→17:52)
[2018-04-20] MEDS: HEPARIN 5,000 UNIT/0.5 ML VIAL SC (06:27)
[2018-04-20 07:01] LABS: ADD MAN DIFF? NO
[2018-04-20 07:03] LABS: WHITE BLOOD COUNT 4.3 10^3/ul (4.8-10.8)
[2018-04-20 07:03] LABS: BASOPHILS % 0.5 % (0.0-2.0); EOSINOPHILS % 0.2 % (0.0-7.0); HEMATOCRIT 29.5 % (37.0-47.0); HEMOGLOBIN 9.7 g/dl (12.0-16.0); LYMPHOCYTES # 1.2 10^3/ul (0.8-2.9); LYMPHOCYTES % 28.2 % (15.0-51.0); MEAN CORPUSCULAR HGB CONC 32.9 g/dl (32.0-37.0); MEAN CORPUSCULAR VOLUME 85.3 fl (82.0-101.0); MONOCYTE # 0.4 10^3/ul (0.3-0.9); MONOCYTES % 8.5 % (0.0-11.0); NEUTROPHIL # 2.7 10^3/ul (1.6-7.5); NEUTROPHILS % 62.4 % (39.0-77.0); PLATELET COUNT 164 10^3/UL (140-415); RED BLOOD COUNT 3.46 10^6/ul (4.20-5.40)
[2018-04-20 07:30] LABS: CREATINE KINASE 103 IU/L (23-200)
[2018-04-20 07:36] LABS: MAGNESIUM 2.3 mg/dl (1.7-2.5)
[2018-04-20 07:41] LABS: CK INDEX 1.4; CK-MB 1.42 ng/ml (0.0-2.4); TROPONIN-I < 0.012 ng/ml (0.000-0.120)
[2018-04-20 07:47] LABS: AMYLASE 42 U/L (11-123)
[2018-04-20 07:47] LABS: LIPASE 76 U/L (23-300)
[2018-04-20] MEDS: INSULIN ASPART [NOVOLOG] 3 ML PEN SC ×7 (09:43→20:50)
[2018-04-20] MEDS: FAMOTIDINE 20 MG TAB PO (09:44)
[2018-04-20] MEDS: CLOPIDOGREL 75 MG TAB PO (09:44)
[2018-04-20] MEDS: AMLODIPINE 10 MG TAB PO (09:48)
[2018-04-20] MEDS: ASPIRIN 81 MG TAB PO (09:49)
[2018-04-20] MEDS: INSULIN GLARGINE [LANTus] (100 UNITS/ML) SYG SC (09:57)
[2018-04-20] MEDS: HYDROCODONE/APAP (5/325) TAB PO (11:11)
[2018-04-20 11:59] LABS: ALANINE AMINOTRANSFERASE 20 IU/L (13-69); ALBUMIN 3.2 g/dl (3.3-4.9); ALBUMIN/GLOBULIN RATIO 1.23; ALKALINE PHOSPHATASE 115 IU/L (42-121); ANION GAP 10 (8-16); ASPARTATE AMINO TRANSFERASE 23 IU/L (15-46); BILIRUBIN,INDIRECT 0.3 mg/dl (0-1.1); BILIRUBIN,TOTAL 0.3 mg/dl (0.2-1.3); BLOOD UREA NITROGEN 28 mg/dl (7-20); CALCIUM 8.6 mg/dl (8.4-10.2); CHLORIDE 112 mmol/L (97-110); CREATININE 2.66 mg/dl (0.44-1.00); GLUCOSE 139 mg/dl (70-220); TOTAL PROTEIN 5.8 g/dl (6.1-8.1)
[2018-04-20 12:02] LABS: CARBON DIOXIDE 22 mmol/L (21-31); POTASSIUM 4.3 mmol/L (3.5-5.1); SODIUM 140 mmol/L (135-144)
[2018-04-20] MEDS: hydrALAzine 20 MG INJ IV (13:28)
[2018-04-21] MEDS: ACCU-CHEK XX (01:44)
[2018-04-21 06:04] LABS: ADD MAN DIFF? NO
[2018-04-21 06:12] LABS: WHITE BLOOD COUNT 4.4 10^3/ul (4.8-10.8)
[2018-04-21 06:12] LABS: BASOPHILS % 0.5 % (0.0-2.0); EOSINOPHILS % 0.2 % (0.0-7.0); HEMATOCRIT 29.2 % (37.0-47.0); HEMOGLOBIN 9.6 g/dl (12.0-16.0); LYMPHOCYTES # 1.3 10^3/ul (0.8-2.9); LYMPHOCYTES % 29.5 % (15.0-51.0); MEAN CORPUSCULAR HEMOGLOBIN 28.2 pg (29.0-33.0); MEAN CORPUSCULAR HGB CONC 32.9 g/dl (32.0-37.0); MEAN CORPUSCULAR VOLUME 85.6 fl (82.0-101.0); MEAN PLATELET VOLUME 11.7 fl (7.4-10.4); MONOCYTE # 0.3 10^3/ul (0.3-0.9); MONOCYTES % 7.7 % (0.0-11.0); NEUTROPHIL # 2.7 10^3/ul (1.6-7.5); NEUTROPHILS % 61.6 % (39.0-77.0); PLATELET COUNT 179 10^3/UL (140-415); RED BLOOD COUNT 3.41 10^6/ul (4.20-5.40)
[2018-04-21] MEDS: hydrALAzine 20 MG INJ IV (06:12)
[2018-04-21] MEDS: FUROSEMIDE 40 MG INJ IV (06:12)
[2018-04-21 06:30] LABS: INR 1.07; PT RATIO 1.1
[2018-04-21 06:31] LABS: PARTIAL THROMBOPLASTIN TIME 34.7 Sec (23.0-35.0)
[2018-04-21 06:44] LABS: PHOSPHORUS 5.9 mg/dl (2.5-4.9)
[2018-04-21 06:44] LABS: MAGNESIUM 2.3 mg/dl (1.7-2.5)
[2018-04-21 06:46] LABS: ANION GAP 11 (8-16); BLOOD UREA NITROGEN 31 mg/dl (7-20); CALCIUM 8.4 mg/dl (8.4-10.2); CARBON DIOXIDE 23 mmol/L (21-31); CHLORIDE 111 mmol/L (97-110); GLUCOSE 93 mg/dl (70-220); POTASSIUM 4.2 mmol/L (3.5-5.1); SODIUM 141 mmol/L (135-144)
[2018-04-21] MEDS: INSULIN ASPART [NOVOLOG] 3 ML PEN SC ×6 (07:42→20:32)
[2018-04-21] MEDS: INSULIN GLARGINE [LANTus] (100 UNITS/ML) SYG SC (08:00)
[2018-04-21] MEDS: FAMOTIDINE 20 MG TAB PO (08:23)
[2018-04-21] MEDS: ASPIRIN 81 MG TAB PO (08:23)
[2018-04-21] MEDS: CLOPIDOGREL 75 MG TAB PO (08:24)
[2018-04-21] MEDS: AMLODIPINE 10 MG TAB PO (08:24)
[2018-04-21 12:12] LABS: HEMOGLOBIN A1C 6.4 % (0-5.9)
[2018-04-21] MEDS: LIDOCAINE 1% (MPF) 5 ML VIAL (13:23)
[2018-04-21 14:03] LABS: FLD MN% 97.2 %; FLD PMN% 2.8 %; FLD RBC 0 /uL; FLD WBC 247 /cmm
[2018-04-21 14:10] LABS: FLD TYPE THORACENTHESIS
[2018-04-21 14:11] LABS: FLD CLARITY CLEAR; FLD COLOR YELLOW
[2018-04-21 14:24] LABS: FLUID LD 217 U/L; FLUID TOTAL PROTEIN < 2.0 g/dl; FLUID TYPE THORACENTESIS FLUID
[2018-04-21 14:25] LABS: FLUID GLUCOSE 96 mg/dl; FLUID TYPE THORACENTESIS FLUID
[2018-04-21] MEDS: HYDROCODONE/APAP (5/325) TAB PO (15:00)
[2018-04-22] MEDS: ACCU-CHEK XX (02:00)
[2018-04-22] MEDS: INSULIN ASPART [NOVOLOG] 3 ML PEN SC ×3 (07:47→17:20)
[2018-04-22] MEDS: FUROSEMIDE 20 MG TAB PO (08:42)
[2018-04-22] MEDS: ASPIRIN 81 MG TAB PO (08:44)
[2018-04-22] MEDS: AMLODIPINE 10 MG TAB PO (08:44)
[2018-04-22] MEDS: CLOPIDOGREL 75 MG TAB PO (08:44)
[2018-04-22] MEDS: FAMOTIDINE 20 MG TAB PO (08:44)
[2018-04-22] MEDS: INSULIN GLARGINE [LANTus] (100 UNITS/ML) SYG SC (08:47)
[2018-04-22 08:56] LABS: ADD MAN DIFF? NO
[2018-04-22 09:00] LABS: BASOPHILS % 0.6 % (0.0-2.0); EOSINOPHILS % 0.1 % (0.0-7.0); HEMATOCRIT 30.1 % (37.0-47.0); HEMOGLOBIN 9.9 g/dl (12.0-16.0); LYMPHOCYTES # 1.4 10^3/ul (0.8-2.9); MEAN CORPUSCULAR HEMOGLOBIN 28.1 pg (29.0-33.0); MEAN CORPUSCULAR HGB CONC 32.9 g/dl (32.0-37.0); MEAN CORPUSCULAR VOLUME 85.5 fl (82.0-101.0); MEAN PLATELET VOLUME 11.9 fl (7.4-10.4); MONOCYTE # 0.5 10^3/ul (0.3-0.9); MONOCYTES % 7.2 % (0.0-11.0); NEUTROPHIL # 4.9 10^3/ul (1.6-7.5); NEUTROPHILS % 70.8 % (39.0-77.0); PLATELET COUNT 191 10^3/UL (140-415); RED BLOOD COUNT 3.52 10^6/ul (4.20-5.40)
[2018-04-22 09:00] LABS: WHITE BLOOD COUNT 6.9 10^3/ul (4.8-10.8)
[2018-04-22 09:21] LABS: MAGNESIUM 2.3 mg/dl (1.7-2.5)
[2018-04-22 09:38] LABS: ANION GAP 14 (8-16); BLOOD UREA NITROGEN 33 mg/dl (7-20); CALCIUM 8.6 mg/dl (8.4-10.2); CARBON DIOXIDE 22 mmol/L (21-31); CHLORIDE 105 mmol/L (97-110); CREATININE 2.96 mg/dl (0.44-1.00); GLUCOSE 139 mg/dl (70-220); POTASSIUM 4.2 mmol/L (3.5-5.1); SODIUM 137 mmol/L (135-144)
== END 2018-04-22 20:24 | disposition home or self-care (01) | DRG 291 ==
LOC: E/R 15:17 → TEL 17:57
PROC: 0W993ZZ Drainage of Right Pleural Cavity, Percutaneous Approach (ICD-10-PCS; principal; 2018-04-21)
DX: I13.0 Hypertensive heart and chronic kidney disease with heart failure and stage 1 through stage 4 chronic kidney disease, or unspecified chronic kidney disease (principal); I50.31 Acute diastolic (congestive) heart failure; J98.11 Atelectasis; J90 Pleural effusion, not elsewhere classified; N17.9 Acute kidney failure, unspecified; N18.9 Chronic kidney disease, unspecified; E11.22 Type 2 diabetes mellitus with diabetic chronic kidney disease; I25.10 Atherosclerotic heart disease of native coronary artery without angina pectoris; I25.2 Old myocardial infarction; I25.5 Ischemic cardiomyopathy; I43 Cardiomyopathy in diseases classified elsewhere; Z95.5 Presence of coronary angioplasty implant and graft
CPT/HCPCS: 36415; 71045; 71046; 71250; 76775; 76942; 80048; 80053; 82150; 82550; 82553; 82945; 82962; 83036; 83615; 83690; 83735; 83880; 83986; 84100; 84157; 84484; 85025; 85610; 85730; 87070; 87102; 87116; 87400; 88104; 88305; 89051; 93306; 96374; 99285-25

== ENCOUNTER 2018-05-25 21:04 | Inpatient (IN) | payer OTHER ==
[2018-05-25 22:02] LABS: ADD MAN DIFF? NO
[2018-05-25] MEDS: ONDANSETRON 4 MG INJ IV (22:04)
[2018-05-25] MEDS: NITROGLYCERIN 2% 1 GM OINT PKT TD (22:04)
[2018-05-25] MEDS: morphine 4 MG/ML VIAL IV (22:04)
[2018-05-25 22:05] LABS: BASOPHILS % 0.3 % (0.0-2.0); EOSINOPHILS % 0.1 % (0.0-7.0); HEMATOCRIT 34.8 % (37.0-47.0); HEMOGLOBIN 11.2 g/dl (12.0-16.0); LYMPHOCYTES # 1.3 10^3/ul (0.8-2.9); LYMPHOCYTES % 17.4 % (15.0-51.0); MEAN CORPUSCULAR HEMOGLOBIN 27.4 pg (29.0-33.0); MEAN CORPUSCULAR HGB CONC 32.2 g/dl (32.0-37.0); MEAN CORPUSCULAR VOLUME 85.1 fl (82.0-101.0); MEAN PLATELET VOLUME 11.2 fl (7.4-10.4); MONOCYTE # 0.5 10^3/ul (0.3-0.9); MONOCYTES % 6.9 % (0.0-11.0); NEUTROPHIL # 5.4 10^3/ul (1.6-7.5); PLATELET COUNT 200 10^3/UL (140-415); RED BLOOD COUNT 4.09 10^6/ul (4.20-5.40); RED CELL DISTRIBUTION WIDTH 13.3 % (11.5-14.5)
[2018-05-25 22:05] LABS: WHITE BLOOD COUNT 7.2 10^3/ul (4.8-10.8)
[2018-05-25 22:23] LABS: ALANINE AMINOTRANSFERASE 28 IU/L (13-69); ALBUMIN 3.9 g/dl (3.3-4.9); ALBUMIN/GLOBULIN RATIO 1.44; ALKALINE PHOSPHATASE 115 IU/L (42-121); ANION GAP 13 (5-13); ASPARTATE AMINO TRANSFERASE 23 IU/L (15-46); BILIRUBIN,INDIRECT 0.6 mg/dl (0-1.1); BILIRUBIN,TOTAL 0.6 mg/dl (0.2-1.3); BLOOD UREA NITROGEN 33 mg/dl (7-20); CALCIUM 9.2 mg/dl (8.4-10.2); CARBON DIOXIDE 21 mmol/L (21-31); CHLORIDE 111 mmol/L (97-110); GLUCOSE 133 mg/dl (70-220); POTASSIUM 4.3 mmol/L (3.5-5.1); SODIUM 145 mmol/L (135-144); TOTAL PROTEIN 6.6 g/dl (6.1-8.1)
[2018-05-25 22:24] LABS: INR 1.06; PROTIME 13.9 Sec (11.9-14.9); PT RATIO 1.1
[2018-05-25 22:25] LABS: PARTIAL THROMBOPLASTIN TIME 36.8 Sec (23.0-35.0)
[2018-05-25 22:34] LABS: TROPONIN-I < 0.012 ng/ml (0.000-0.120)
[2018-05-25 22:51] LABS: B-TYPE NATRIURETIC PEPTIDE 34800 PG/ML (0-125)
[2018-05-25] MEDS: CEFEPIME 1GM/50 ML (PMX) 50 ML IVPB (23:55)
[2018-05-26 00:29] LABS: AADO2 Arterial 102.9 mmHg (7.0-24.0); Allen Test ACCEPTAB; Arterial Base Excess -5.8 mmol/L (-3.0-3); Arterial Blood Gas Oxygen Sat 95.1 mmHG (95.0-100.0); Arterial COHb 0.2 % (0.0-3.0); Arterial Fraction of Oxyhgb 94.5 % (93.0-99.0); Arterial HCO3 20.3 mmol/L (22.0-26.0); Arterial MetHb 0.4 % (0.0-1.5); Arterial Total Hemglobin 11.3 g/dl (12.0-18.0); Arterial pCO2 42.4 mmhg (35-45); MODE NASAL CANNULA; Site Right Radial
[2018-05-26] MEDS: METOCLOPRAMIDE 10 MG INJ IV (00:43)
[2018-05-26] MEDS: VANCOMYCIN 1 GM (PMX) 250 ML IVPB (00:43)
[2018-05-26] MEDS ORDERED: NITROGLYCERIN (SL) 0.4 MG TAB SL (01:00)
[2018-05-26] MEDS ORDERED: NACL 0.9% 3 ML SYG IV (01:00)
[2018-05-26] MEDS: FUROSEMIDE 40 MG INJ IV ×3 (01:17→17:14)
[2018-05-26] MEDS: hydrALAzine 20 MG INJ IV ×2 (02:18→17:13)
[2018-05-26] MEDS: ONDANSETRON 4 MG INJ IV (03:42)
[2018-05-26 05:02] LABS: ADD MAN DIFF? NO
[2018-05-26 05:12] LABS: WHITE BLOOD COUNT 7.9 10^3/ul (4.8-10.8)
[2018-05-26 05:12] LABS: BASOPHILS % 0.4 % (0.0-2.0); HEMATOCRIT 29.7 % (37.0-47.0); HEMOGLOBIN 9.6 g/dl (12.0-16.0); LYMPHOCYTES # 0.6 10^3/ul (0.8-2.9); LYMPHOCYTES % 8.1 % (15.0-51.0); MEAN CORPUSCULAR HGB CONC 32.3 g/dl (32.0-37.0); MEAN CORPUSCULAR VOLUME 86.6 fl (82.0-101.0); MEAN PLATELET VOLUME 12.3 fl (7.4-10.4); MONOCYTE # 0.2 10^3/ul (0.3-0.9); MONOCYTES % 2.9 % (0.0-11.0); NEUTROPHIL # 6.9 10^3/ul (1.6-7.5); NEUTROPHILS % 87.8 % (39.0-77.0); PLATELET COUNT 175 10^3/UL (140-415); RED BLOOD COUNT 3.43 10^6/ul (4.20-5.40); RED CELL DISTRIBUTION WIDTH 13.5 % (11.5-14.5)
[2018-05-26 05:27] LABS: ANION GAP 9 (5-13); BLOOD UREA NITROGEN 37 mg/dl (7-20); CALCIUM 8.7 mg/dl (8.4-10.2); CARBON DIOXIDE 19 mmol/L (21-31); CHLORIDE 114 mmol/L (97-110); CREATININE 3.27 mg/dl (0.44-1.00); GLUCOSE 193 mg/dl (70-220); POTASSIUM 4.5 mmol/L (3.5-5.1); SODIUM 142 mmol/L (135-144)
[2018-05-26 05:46] LABS: MAGNESIUM 2.3 mg/dl (1.7-2.5)
[2018-05-26 05:46] LABS: PHOSPHORUS 6.3 mg/dl (2.5-4.9)
[2018-05-26] MEDS: FAMOTIDINE 20 MG TAB PO ×2 (09:00→22:06)
[2018-05-26] MEDS: AMLODIPINE 10 MG TAB PO (09:00)
[2018-05-26] MEDS: ASPIRIN 81 MG TAB PO (09:00)
[2018-05-26] MEDS: CLOPIDOGREL 75 MG TAB PO ×2 (09:00→17:13)
[2018-05-26] MEDS: HEPARIN 5,000 UNIT/1 ML VIAL SC ×2 (14:00→22:00)
[2018-05-26 14:46] LABS: TROPONIN-I 0.119 ng/ml (0.000-0.120)
[2018-05-26 15:06] LABS: LACTATE DEHYDROGENASE 602 IU/L (313-618)
[2018-05-26] MEDS: LIDOCAINE 1% (MPF) 5 ML VIAL (16:11)
[2018-05-26 16:32] LABS: FLD MN% 95.5 %; FLD PMN% 4.5 %; FLD RBC 0 /uL; FLD WBC 153 /cmm
[2018-05-26 16:37] LABS: LACTATE DEHYDROGENASE 218 IU/L (313-618)
[2018-05-26 16:40] LABS: FLUID LD 218 U/L; FLUID TOTAL PROTEIN < 2.0 g/dl; FLUID TYPE PLEURAL FLUID
[2018-05-26 16:43] LABS: FLUID GLUCOSE 167 mg/dl; FLUID TYPE PLEURAL FLUID
[2018-05-26] MEDS: ACETAMINOPHEN 325 MG TAB PO (17:02)
[2018-05-26 17:35] LABS: FLD CLARITY CLEAR; FLD COLOR YELLOW
[2018-05-26 17:35] LABS: FLD TYPE PLEURAL
[2018-05-26] MEDS ORDERED: HEPARIN 5,000 UNIT/0.5 ML VIAL (19:56)
[2018-05-26] MEDS: ATORVASTATIN 40 MG TAB PO (21:00)
[2018-05-27] MEDS: DIPHENHYDRAMINE 50 MG INJ IV (00:34)
[2018-05-27] MEDS ORDERED: HEPARIN 5,000 UNIT/0.5 ML VIAL ×4 (05:16→21:35)
[2018-05-27] MEDS: FUROSEMIDE 40 MG INJ IV (06:00)
[2018-05-27] MEDS: HEPARIN 5,000 UNIT/1 ML VIAL SC ×3 (06:14→22:01)
[2018-05-27 06:31] LABS: PHOSPHORUS 5.8 mg/dl (2.5-4.9)
[2018-05-27 06:31] LABS: MAGNESIUM 2.5 mg/dl (1.7-2.5)
[2018-05-27 06:33] LABS: ANION GAP 6 (5-13); BLOOD UREA NITROGEN 41 mg/dl (7-20); CALCIUM 8.4 mg/dl (8.4-10.2); CARBON DIOXIDE 22 mmol/L (21-31); CHLORIDE 113 mmol/L (97-110); CREATININE 3.96 mg/dl (0.44-1.00); GLUCOSE 140 mg/dl (70-220); POTASSIUM 4.7 mmol/L (3.5-5.1); SODIUM 141 mmol/L (135-144)
[2018-05-27] MEDS: ASPIRIN 81 MG TAB PO (08:56)
[2018-05-27] MEDS: CLOPIDOGREL 75 MG TAB PO (08:56)
[2018-05-27] MEDS: FAMOTIDINE 20 MG TAB PO (08:56)
[2018-05-27] MEDS: AMLODIPINE 10 MG TAB PO (08:57)
[2018-05-27] MEDS ORDERED: LINEZOLID 600 MG/D5W (PMX) 300 ML IVPB (10:00)
[2018-05-27] MEDS: CEFEPIME 1GM/50 ML (PMX) 50 ML IVPB (10:37)
[2018-05-27 14:53] LABS: SODIUM,URINE RANDOM 14 mmol/L (30-90)
[2018-05-27 14:55] LABS: CREATININE,URINE RANDOM 148.38 mg/dl (20-320)
[2018-05-27] MEDS ORDERED: CEFEPIME 1GM/50 ML (PMX) 50 ML IVPB (15:00)
[2018-05-27 16:04] LABS: PROTEIN/CREAT RATIO 4.04 RATIO
[2018-05-27] MEDS: morphine 2 MG INJ IV (20:45)
[2018-05-27] MEDS: ZYVOX 600 MG TAB PO (21:51)
[2018-05-27] MEDS: ATORVASTATIN 40 MG TAB PO (21:51)
[2018-05-28] MEDS ORDERED: HEPARIN 5,000 UNIT/0.5 ML VIAL ×3 (04:58→19:26)
[2018-05-28] MEDS: HEPARIN 5,000 UNIT/1 ML VIAL SC ×3 (06:30→21:12)
[2018-05-28] MEDS: AMLODIPINE 10 MG TAB PO (08:03)
[2018-05-28] MEDS: CLOPIDOGREL 75 MG TAB PO (08:03)
[2018-05-28] MEDS: ASPIRIN 81 MG TAB PO (08:03)
[2018-05-28] MEDS: ZYVOX 600 MG TAB PO ×2 (08:04→21:00)
[2018-05-28] MEDS: FAMOTIDINE 20 MG TAB PO (10:23)
[2018-05-28] MEDS: CEFEPIME 1GM/50 ML (PMX) 50 ML IVPB (10:25)
[2018-05-28] MEDS: morphine 2 MG INJ IV (10:27)
[2018-05-28 12:32] LABS: ADD MAN DIFF? NO
[2018-05-28 12:34] LABS: BASOPHILS % 0.4 % (0.0-2.0); EOSINOPHILS % 0.3 % (0.0-7.0); HEMATOCRIT 29.1 % (37.0-47.0); LYMPHOCYTES # 1.3 10^3/ul (0.8-2.9); LYMPHOCYTES % 18.1 % (15.0-51.0); MEAN CORPUSCULAR HEMOGLOBIN 27.3 pg (29.0-33.0); MEAN CORPUSCULAR HGB CONC 30.9 g/dl (32.0-37.0); MEAN CORPUSCULAR VOLUME 88.2 fl (82.0-101.0); MEAN PLATELET VOLUME 11.9 fl (7.4-10.4); MONOCYTE # 0.7 10^3/ul (0.3-0.9); MONOCYTES % 9.2 % (0.0-11.0); NEUTROPHIL # 5.2 10^3/ul (1.6-7.5); NEUTROPHILS % 71.6 % (39.0-77.0); PLATELET COUNT 155 10^3/UL (140-415); RED CELL DISTRIBUTION WIDTH 13.6 % (11.5-14.5)
[2018-05-28 12:34] LABS: WHITE BLOOD COUNT 7.3 10^3/ul (4.8-10.8)
[2018-05-28 12:56] LABS: ANION GAP 10 (5-13); BLOOD UREA NITROGEN 44 mg/dl (7-20); CALCIUM 8.1 mg/dl (8.4-10.2); CARBON DIOXIDE 20 mmol/L (21-31); CHLORIDE 107 mmol/L (97-110); CREATININE 3.92 mg/dl (0.44-1.00); GLUCOSE 192 mg/dl (70-220); POTASSIUM 4.8 mmol/L (3.5-5.1); SODIUM 137 mmol/L (135-144)
[2018-05-28 13:00] LABS: PHOSPHORUS 4.9 mg/dl (2.5-4.9)
[2018-05-28 13:00] LABS: MAGNESIUM 2.3 mg/dl (1.7-2.5)
[2018-05-28 13:05] LABS: ADD UMIC YES; UR ASCORBIC ACID NEGATIVE (NEGATIVE); UR BILIRUBIN (Dip) NEGATIVE (NEGATIVE); UR BLOOD (Dip) NEGATIVE (NEGATIVE); UR CLARITY SLIGHTLY CLOUDY (CLEAR); UR COLOR YELLOW (YELLOW); UR GLUCOSE (Dip) 3+ mg/dL (NEGATIVE); UR KETONES (Dip) NEGATIVE (NEGATIVE); UR LEUKOCYTE ESTERASE (Dip) NEGATIVE Leu/ul (NEGATIVE); UR NITRITE (Dip) NEGATIVE (NEGATIVE); UR RBC 3 /HPF (0-5); UR SPECIFIC GRAVITY (Dip) 1.018 (1.003-1.030); UR TOTAL PROTEIN (Dip) 3+ mg/dl (NEGATIVE); UR UROBILINOGEN (Dip) NEGATIVE (NEGATIVE); UR WBC 4 /HPF (0-5)
[2018-05-28 13:51] LABS: CREATINE KINASE 134 IU/L (23-200)
[2018-05-28 13:51] LABS: URIC ACID 8.2 mg/dl (3.1-7.9)
[2018-05-28] MEDS: ATORVASTATIN 40 MG TAB PO (21:00)
[2018-05-29] MEDS ORDERED: HEPARIN 5,000 UNIT/0.5 ML VIAL ×3 (05:22→22:59)
[2018-05-29] MEDS: LEVOFLOXACIN 500 MG TAB PO (05:26)
[2018-05-29] MEDS: HEPARIN 5,000 UNIT/1 ML VIAL SC ×2 (05:57→14:11)
[2018-05-29 06:47] LABS: MAGNESIUM 2.4 mg/dl (1.7-2.5)
[2018-05-29 06:47] LABS: PHOSPHORUS 5.1 mg/dl (2.5-4.9)
[2018-05-29 07:01] LABS: ANION GAP 6 (5-13); BLOOD UREA NITROGEN 44 mg/dl (7-20); CALCIUM 8.1 mg/dl (8.4-10.2); CARBON DIOXIDE 22 mmol/L (21-31); CHLORIDE 109 mmol/L (97-110); CREATININE 3.87 mg/dl (0.44-1.00); GLUCOSE 159 mg/dl (70-220); SODIUM 137 mmol/L (135-144)
[2018-05-29] MEDS: ASPIRIN 81 MG TAB PO (09:21)
[2018-05-29] MEDS: FAMOTIDINE 20 MG TAB PO (09:21)
[2018-05-29] MEDS: ZYVOX 600 MG TAB PO ×2 (09:23→20:07)
[2018-05-29] MEDS: CLOPIDOGREL 75 MG TAB PO (09:23)
[2018-05-29] MEDS: AMLODIPINE 10 MG TAB PO (09:24)
[2018-05-29] MEDS: CEFEPIME 1GM/50 ML (PMX) 50 ML IVPB (10:30)
[2018-05-29] MEDS: MAGNESIUM HYDROXIDE 30ML CUP PO (12:36)
[2018-05-29] MEDS ORDERED: LORAZEPAM 0.5 MG TAB PO (18:30)
[2018-05-29] MEDS: ATORVASTATIN 40 MG TAB PO (20:07)
[2018-05-29] MEDS: ACETAMINOPHEN 325 MG TAB PO (20:23)
[2018-05-29] MEDS: BISACODYL 10 MG SUPP PR (20:24)
[2018-05-29] MEDS: DOCUSATE SODIUM 100 MG CAP PO (20:24)
[2018-05-29] MEDS: POLYETHYLENE GLYCOL 17 GM PACKET PO (23:03)
[2018-05-29] MEDS: ONDANSETRON 4 MG INJ IV (23:03)
[2018-05-30] MEDS: HEPARIN 5,000 UNIT/1 ML VIAL SC ×4 (00:01→21:08)
[2018-05-30] MEDS ORDERED: HEPARIN 5,000 UNIT/0.5 ML VIAL ×3 (06:19→20:58)
[2018-05-30] MEDS: ACETAMINOPHEN 325 MG TAB PO (06:31)
[2018-05-30] MEDS: LEVOFLOXACIN 500 MG TAB PO (06:32)
[2018-05-30 06:56] LABS: ANION GAP 8 (5-13); BLOOD UREA NITROGEN 41 mg/dl (7-20); CALCIUM 8.2 mg/dl (8.4-10.2); CARBON DIOXIDE 22 mmol/L (21-31); CHLORIDE 108 mmol/L (97-110); CREATININE 3.79 mg/dl (0.44-1.00); GLUCOSE 162 mg/dl (70-220); POTASSIUM 5.1 mmol/L (3.5-5.1); SODIUM 138 mmol/L (135-144)
[2018-05-30 06:59] LABS: MAGNESIUM 2.7 mg/dl (1.7-2.5)
[2018-05-30] MEDS: CLOPIDOGREL 75 MG TAB PO (08:55)
[2018-05-30] MEDS: AMLODIPINE 10 MG TAB PO (08:55)
[2018-05-30] MEDS: ASPIRIN 81 MG TAB PO (08:55)
[2018-05-30] MEDS: POLYETHYLENE GLYCOL 17 GM PACKET PO (08:56)
[2018-05-30] MEDS: FAMOTIDINE 20 MG TAB PO (08:56)
[2018-05-30] MEDS: ZYVOX 600 MG TAB PO ×2 (08:56→21:00)
[2018-05-30] MEDS: ONDANSETRON 4 MG INJ IV (11:39)
[2018-05-30] MEDS: CEFEPIME 1GM/50 ML (PMX) 50 ML IVPB (11:40)
[2018-05-30] MEDS: LORAZEPAM 2 MG INJ IV (14:27)
[2018-05-30] MEDS: ATORVASTATIN 40 MG TAB PO (21:00)
[2018-05-30] MEDS ORDERED: POLYETHYLENE GLYCOL 17 GM PACKET PO (21:00)
[2018-05-31] MEDS ORDERED: HEPARIN 5,000 UNIT/0.5 ML VIAL ×3 (05:32→20:52)
[2018-05-31] MEDS: LEVOFLOXACIN 500 MG TAB PO (05:37)
[2018-05-31] MEDS: HEPARIN 5,000 UNIT/1 ML VIAL SC ×3 (05:45→21:12)
[2018-05-31 06:03] LABS: ANION GAP 5 (5-13); BLOOD UREA NITROGEN 43 mg/dl (7-20); CALCIUM 8.4 mg/dl (8.4-10.2); CARBON DIOXIDE 22 mmol/L (21-31); CHLORIDE 109 mmol/L (97-110); GLUCOSE 136 mg/dl (70-220); POTASSIUM 5.1 mmol/L (3.5-5.1); SODIUM 136 mmol/L (135-144)
[2018-05-31 06:24] LABS: MAGNESIUM 2.7 mg/dl (1.7-2.5)
[2018-05-31] MEDS: ASPIRIN 81 MG TAB PO (08:29)
[2018-05-31] MEDS: ZYVOX 600 MG TAB PO ×2 (08:29→20:42)
[2018-05-31] MEDS: CLOPIDOGREL 75 MG TAB PO (08:29)
[2018-05-31] MEDS: FUROSEMIDE 20 MG TAB PO ×2 (08:29→17:54)
[2018-05-31] MEDS: POLYETHYLENE GLYCOL 17 GM PACKET PO (08:30)
[2018-05-31] MEDS: AMLODIPINE 10 MG TAB PO (08:30)
[2018-05-31] MEDS: FAMOTIDINE 20 MG TAB PO (08:30)
[2018-05-31] MEDS: CEFEPIME 1GM/50 ML (PMX) 50 ML IVPB (10:53)
[2018-05-31] MEDS: hydrALAzine 20 MG INJ IV (12:23)
[2018-05-31] MEDS: ONDANSETRON 4 MG INJ IV (13:48)
[2018-05-31] MEDS: LORAZEPAM 2 MG INJ IV (14:38)
[2018-05-31] MEDS: ATORVASTATIN 40 MG TAB PO (20:42)
[2018-06-01] MEDS ORDERED: HEPARIN 5,000 UNIT/0.5 ML VIAL ×2 (05:54→14:11)
[2018-06-01] MEDS: FUROSEMIDE 20 MG TAB PO ×3 (05:57→17:21)
[2018-06-01] MEDS: HEPARIN 5,000 UNIT/1 ML VIAL SC ×2 (06:00→14:33)
[2018-06-01] MEDS: hydrALAzine 20 MG INJ IV ×2 (06:22→14:19)
[2018-06-01] MEDS: CLOPIDOGREL 75 MG TAB PO ×2 (09:00→15:51)
[2018-06-01] MEDS: AMLODIPINE 10 MG TAB PO ×2 (09:00→15:50)
[2018-06-01] MEDS: ASPIRIN 81 MG TAB PO ×2 (09:00→15:50)
[2018-06-01] MEDS: FAMOTIDINE 20 MG TAB PO ×2 (09:00→15:51)
[2018-06-01] MEDS: POLYETHYLENE GLYCOL 17 GM PACKET PO (09:00)
[2018-06-01] MEDS: CARBAMIDE PEROXIDE 6.5% 15ML OTIC BOTH EARS (10:00)
[2018-06-01] MEDS ORDERED: SIMETH/SOD BICARB/CIT AC PKT (E-Z- GAS II) PO (10:56)
[2018-06-01] MEDS ORDERED: BARIUM SULFATE 135 ML (E-Z HD) PO (10:56)
[2018-06-01] MEDS ORDERED: morphine LIQ (10 MG/5 ML) CUP PO (12:45)
[2018-06-01 14:54] LABS: ANION GAP 7 (5-13); BLOOD UREA NITROGEN 39 mg/dl (7-20); CALCIUM 8.5 mg/dl (8.4-10.2); CARBON DIOXIDE 21 mmol/L (21-31); CHLORIDE 108 mmol/L (97-110); GLUCOSE 172 mg/dl (70-220); POTASSIUM 4.9 mmol/L (3.5-5.1); SODIUM 136 mmol/L (135-144)
[2018-06-01 15:07] LABS: MAGNESIUM 2.8 mg/dl (1.7-2.5)
[2018-06-02] MEDS ORDERED: LEVOFLOXACIN 500 MG TAB PO (06:00)
== END 2018-06-01 18:40 | disposition home or self-care (01) | DRG 291 ==
LOC: 6WM 05-26 00:17 → E/R 21:04
PROC: 0W993ZX Drainage of Right Pleural Cavity, Percutaneous Approach, Diagnostic (ICD-10-PCS; principal; 2018-05-26)
DX: I13.0 Hypertensive heart and chronic kidney disease with heart failure and stage 1 through stage 4 chronic kidney disease, or unspecified chronic kidney disease (principal); I50.33 Acute on chronic diastolic (congestive) heart failure; J96.01 Acute respiratory failure with hypoxia; J18.9 Pneumonia, unspecified organism; N17.9 Acute kidney failure, unspecified; J91.8 Pleural effusion in other conditions classified elsewhere; E11.22 Type 2 diabetes mellitus with diabetic chronic kidney disease; I25.10 Atherosclerotic heart disease of native coronary artery without angina pectoris; I42.9 Cardiomyopathy, unspecified; D63.1 Anemia in chronic kidney disease; D69.6 Thrombocytopenia, unspecified; N18.3 Chronic kidney disease, stage 3 (moderate); E78.5 Hyperlipidemia, unspecified; Z95.5 Presence of coronary angioplasty implant and graft; Z91.14 Patient's other noncompliance with medication regimen
CPT/HCPCS: 36600; 71045; 71046; 71250; 74230; 76775; 76942; 80048; 80053; 81001; 81003; 82550; 82570; 82803; 82945; 82962; 83605; 83615; 83735; 83880; 84100; 84157; 84300; 84484; 84560; 85025; 85610; 85730; 87040; 87070; 87081; 87102; 87116; 88104; 88305; 88341; 88342; 89051; 89190; 92526; 92610; 93005